=== PATIENT | male | born 1990 | race Caucasian/White ===

== ENCOUNTER 2018-04-26 07:38 | Outpatient (CLI) | payer BC ==
[2018-04-26] MEDS ORDERED: VITA1TAB19 PO (08:34)
[2018-04-26] MEDS ORDERED: DIME50TA21 PO (08:34)
[2018-04-26] MEDS ORDERED: FERR324T5 PO (08:34)
[2018-04-26] MEDS ORDERED: [UNRECOGNIZED DRUG - OTHER] PO (08:34)
[2018-04-26] MEDS ORDERED: TRAM50TA2 PO (08:34)
[2018-04-26] MEDS ORDERED: MELA10TA PO (08:34)
[2018-04-26] MEDS ORDERED: TART CHERRY PO (08:34)
[2018-04-26] MEDS ORDERED: CENTRUM MVT PO (08:34)
[2018-04-26] MEDS ORDERED: CETI10TA18 PO (08:34)
[2018-04-26] MEDS ORDERED: OMEG1CAP6 PO (08:34)
[2018-04-26] MEDS ORDERED: CHOL10003 PO (08:34)
[2018-04-26] MEDS ORDERED: TURMERIC PO (08:34)
== END 2018-04-26 23:59 | disposition home or self-care (01) ==
LOC: STAR 07:38
PROVIDERS: ATTEND Podiatrist Foot & Ankle Surgery
DX: Z02.9 Encounter for administrative examinations, unspecified (principal)

== ENCOUNTER 2018-05-03 13:39 | Day surgery (SDC) | payer BC ==
[~2018-05-03] VITALS: Ht 177.8 cm; Wt 78.0 kg
[~2018-05-03 13:39] MED LIST: CEFAZOLIN 1,000 MG ONE; CENTRUM MVT PO; CETI10TA18 PO; CHOL10003 PO; DEXAMETHASONE 4 MG/ML, 1ML ONE; DIME50TA21 PO; FERR324T5 PO; KETOROLAC 30 MG/1 ML ONE; MELA10TA PO; OMEG1CAP6 PO; ONDANSETRON 2MG/ML, 2ML ONE; PROPOFOL 10 MG/ML, 20ML ONE; TART CHERRY PO; TRAM50TA2 PO; TURMERIC PO; VITA1TAB19 PO; [UNRECOGNIZED DRUG - OTHER] PO
[2018-05-03 14:21] VITALS: BP 116/84
[2018-05-03] MEDS ORDERED: FENTANYL PF 100 MCG/2ML ONE ×2 (15:29→18:31)
[2018-05-03] MEDS ORDERED: MEPERIDINE/PF 25MG/0.5ML IVPush PRN (15:30)
[2018-05-03] MEDS ORDERED: METOCLOPRAMIDE 5 MG/ML, 2ML IV PRN (15:30)
[2018-05-03] MEDS ORDERED: LORazepam 2 MG/ML, 1ML IVPush PRN (15:30)
[2018-05-03] MEDS ORDERED: HYDROmorphone 2 MG/ML, 1ML IVPush PRN (15:30)
[2018-05-03] MEDS ORDERED: HYDROmorphone 2MG TABLET PO PRN (15:30)
[2018-05-03] MEDS ORDERED: ACETAMINOPHEN 325 MG TABLET PO PRN (15:30)
[2018-05-03] MEDS ORDERED: BUPIVACAINE/PF-EPI 0.5% 1:200K ONE (15:40)
[2018-05-03] MEDS ORDERED: MIDAZOLAM 1 MG/ML, 2ML ONE (16:13)
[2018-05-03] MEDS ORDERED: MEPERIDINE/PF 25MG/ML,1ML ONE (17:54)
[2018-05-03] MEDS: FENTANYL PF 100 MCG/2ML IV PRN ×2 (18:30→18:45)
== END 2018-05-03 22:18 | disposition home or self-care (01) ==
LOC: OR 13:39 → 4NOR 19:30 → OR 22:08
PROVIDERS: ATTEND Podiatrist Foot & Ankle Surgery
DX: T84.018A Broken internal joint prosthesis, other site, initial encounter (principal); Y83.8 Other surgical procedures as the cause of abnormal reaction of the patient, or of later complication, without mention of misadventure at the time of the procedure; Y92.89 Other specified places as the place of occurrence of the external cause; Z88.6 Allergy status to analgesic agent; Z88.1 Allergy status to other antibiotic agents; Z88.8 Allergy status to other drugs, medicaments and biological substances
CPT/HCPCS: 28730; 73620; 76000; C1713; C1762; J0690; J1100; J1885; J2175; J2250; J2405; J2704; J3010; 76001; G0378

== ENCOUNTER 2019-04-26 04:49 | Emergency (ER) | payer BC, OTHER ==
[~2019-04-26] VITALS: Ht 180.3 cm; Wt 82.6 kg
[~2019-04-26 04:49] MED LIST changes: -CEFAZOLIN 1,000 MG ONE; -DEXAMETHASONE 4 MG/ML, 1ML ONE; -KETOROLAC 30 MG/1 ML ONE; -ONDANSETRON 2MG/ML, 2ML ONE; -PROPOFOL 10 MG/ML, 20ML ONE
[2019-04-26 04:56] VITALS: BP 140/95
[2019-04-26] MEDS ORDERED: NAPROXEN 500 MG TABLET PO ONE (06:00)
[2019-04-26] MEDS ORDERED: NAPROXEN 500 MG TABLET ONE (06:01)
== END 2019-04-26 06:16 | disposition home or self-care (01) ==
LOC: ED 05:57
DX: M72.9 Fibroblastic disorder, unspecified (principal)
CPT/HCPCS: 29105; 99283